=== PATIENT | female | born 1935 | race Asian ===

== ENCOUNTER 2016-08-08 09:18 | Inpatient (IN) | payer MEDICARE, OTHER ==
[~2016-08-08] VITALS: Ht 152.4 cm; Wt 42.5 kg
[~2016-08-08 09:18] MED LIST: ADV250 IH; ALBU8HFA IH; AMLO-511 PO; ATOR20TA86 PO; BENZ-26 PO; CHOL2000 PO; CLOT30CR23 TP; CYCL05OE OD; FLU15OS OD; FURO40 PO; KDUR20 PO; LATA2.5D2 OD; METF500T4 PO; METO50 PO; SPIR25 PO; TIOT185 IH; TRAM50TA4 PO; WARF1 PO
[2016-08-08 09:32] LABS: GLUCOSE,POINT OF CARE 127 MG/DL (70-110)
[2016-08-08] MEDS ORDERED: ERGO500044 PO (09:38)
[2016-08-08] MEDS ORDERED: ALBU8.5H IH (09:38)
[2016-08-08 10:25] LABS: EOSINOPHILS % (AUTO) 2.1 % (1.0-6.0); HEMATOCRIT 30.8 % (36-46); HEMOGLOBIN 9.5 g/dL (12.0-16.0); LYMPHOCYTES # (AUTO) 0.8 K/uL (1.0-4.8); LYMPHOCYTES % (AUTO) 15.3 % (22.0-44.0); MEAN CORPUSCULAR HEMOGLOBIN 21.7 pg (26.0-34.0); MEAN CORPUSCULAR HGB CONC 30.8 G/dL (31.0-37.0); MEAN CORPUSCULAR VOLUME 71 fL (80-100); MONOCYTES # (AUTO) 0.7 K/uL (0.1-1.0); MONOCYTES % (AUTO) 12.8 % (2.0-9.0); NEUTROPHILS # (AUTO) 3.6 K/uL (1.8-7.7); NEUTROPHILS % (AUTO) 69.8 % (40.0-70.0); PLATELET COUNT (AUTO) 289 K/uL (150-450); RED BLOOD CELL COUNT(AUTO) 4.36 MIL/uL (4.00-5.20); WHITE BLOOD COUNT (AUTO) 5.2 K/uL (4.5-11.0)
[2016-08-08 10:35] LABS: INR 1.6 (0.9-1.1); PROTHROMBIN TIME 17.4 SEC (9.4-11.6)
[2016-08-08 10:38] LABS: ANION GAP 11 mmol/L (8-16); CALCIUM, TOTAL 9.3 mg/dL (8.8-10.5); CARBON DIOXIDE 27 mmol/L (22-29); CHLORIDE 100 mmol/L (98-107); CREATININE 1.21 mg/dL (0.60-1.30); GLOMERULAR FILTR. RATE CALC 43 mL/min (>60); SODIUM SERUM 138 mmol/L (136-145); UREA NITROGEN, BLOOD 28 mg/dL (7-18)
[2016-08-08 10:40] LABS: ALANINE AMINOTRANSFERASE 19 U/L (12-78); ALBUMIN 3.5 g/dL (3.4-5.0); ASPARTATE AMINOTRANSFERASE 33 U/L (15-37); BILIRUBIN,TOTAL 1.4 mg/dL (0.1-1.0); CREATINE KINASE, TOTAL 54 U/L (26-192); TOTAL PROTEIN, SERUM 7.9 g/dL (6.4-8.2)
[2016-08-08 10:47] LABS: B-TYPE NATRIURETIC PEPTIDE 1170 pg/mL (0-100)
[2016-08-08 10:50] LABS: RBC MORPHOLOGY COMMENT ABNORMAL RBC MORPH
[2016-08-08] MEDS ORDERED: SODIUM CHLORIDE 0.9% 100 ML ONE (15:03)
[2016-08-08] MEDS ORDERED: IOVERSOL 350 MG/ML 100 ML VIAL ONE (15:03)
[2016-08-08 17:55] VITALS: BP 117/66
[2016-08-08] MEDS ORDERED: LEVOFLOXACIN 500 MG TABLET PO SCH (20:00)
[2016-08-08 20:13] VITALS: BP 112/71
[2016-08-08 20:47] LABS: ABG A-A DIFF O2 40.3 mmHg (10-20.0); ABG BASE EXCESS -1.7 mmol/L (-2.0-3.0); ABG HCO3 23.5 mmol/L (22.0-26.0); ABG OXYHEMOGLOBIN 93.9 % (94.0-100.0); ABG PCO2 33 mmHg (35-45); ABG PH 7.448 (7.35-7.450)
[2016-08-08] MEDS ORDERED: ALBUTEROL SULFATE HFA 90 MCG/PUFF 8 GM INHALER IH PRN (21:30)
[2016-08-08] MEDS ORDERED: TraMADol HCL 50 MG TABLET PO PRN (21:30)
[2016-08-08] MEDS ORDERED: LORazepam 0.5 MG TABLET PO ONE (21:45)
[2016-08-08 22:28] VITALS: BP 146/83
[2016-08-08] MEDS: METOPROLOL TARTRATE 50 MG TABLET PO SCH (22:52)
[2016-08-09 00:03] VITALS: BP 120/73
[2016-08-09] MEDS ORDERED: SODIUM CHLORIDE 0.9% 250 ML IV ONE (00:04)
[2016-08-09] MEDS: FLUOROMETHOLONE 0.1% 5 ML OPHTHALMIC SUSPENSION OD SCH ×2 (00:16→20:59)
[2016-08-09] MEDS: LEVOFLOXACIN 500 MG/D5% WATER 100 ML IV SCH ×2 (00:19→23:50)
[2016-08-09] MEDS: CycloSPORINE 0.05% 0.4 ML OPHTHALMIC EMULSION OD SCH ×2 (00:20→23:49)
[2016-08-09 04:11] VITALS: BP 115/72
[2016-08-09 06:01] LABS: BASOPHILS % (AUTO) 0.6 % (0.0-2.0); EOSINOPHILS % (AUTO) 2.1 % (1.0-6.0); HEMOGLOBIN 9.1 g/dL (12.0-16.0); LYMPHOCYTES # (AUTO) 0.4 K/uL (1.0-4.8); LYMPHOCYTES % (AUTO) 7.4 % (22.0-44.0); MEAN CORPUSCULAR HEMOGLOBIN 21.6 pg (26.0-34.0); MEAN CORPUSCULAR HGB CONC 30.4 G/dL (31.0-37.0); MEAN CORPUSCULAR VOLUME 71 fL (80-100); MONOCYTES # (AUTO) 0.9 K/uL (0.1-1.0); MONOCYTES % (AUTO) 15.4 % (2.0-9.0); NEUTROPHILS # (AUTO) 4.3 K/uL (1.8-7.7); NEUTROPHILS % (AUTO) 74.5 % (40.0-70.0); PLATELET COUNT (AUTO) 279 K/uL (150-450); RED BLOOD CELL COUNT(AUTO) 4.23 MIL/uL (4.00-5.20); RED CELL DISTRIBUTION WIDTH 20.3 % (11.5-14.5); WHITE BLOOD COUNT (AUTO) 5.7 K/uL (4.5-11.0)
[2016-08-09 06:25] LABS: ALBUMIN 3.2 g/dL (3.4-5.0); BILIRUBIN,TOTAL 1.3 mg/dL (0.1-1.0); CALCIUM, TOTAL 8.9 mg/dL (8.8-10.5); CREATININE 0.97 mg/dL (0.60-1.30); MAGNESIUM 2.6 mg/dL (1.80-2.40); POTASSIUM 4.3 mmol/L (3.5-5.1); TOTAL PROTEIN, SERUM 7.6 g/dL (6.4-8.2)
[2016-08-09 06:42] LABS: RBC MORPHOLOGY COMMENT ABNORMAL RBC MORPH
[2016-08-09 07:39] VITALS: BP 114/70
[2016-08-09] MEDS ORDERED: LEVALBUTEROL HCL 0.63 MG/3 ML NEB SOLUTION NEB PRN (08:15)
[2016-08-09] MEDS ORDERED: TIOTROPIUM BROMIDE 18 MCG/INH HANDIHALER [5] IH SCH (09:00)
[2016-08-09] MEDS ORDERED: ACETAMINOPHEN 325 MG TABLET PO PRN (09:00)
[2016-08-09] MEDS ORDERED: [UNRECOGNIZED DRUG - OTHER] PO SCH (09:00)
[2016-08-09] MEDS ORDERED: SPIRONOLACTONE 50 MG TABLET PO SCH (09:00)
[2016-08-09] MEDS ORDERED: HYDROCODONE/ACETAMINOPHEN 5-325 MG TABLET PO PRN (09:00)
[2016-08-09] MEDS ORDERED: WARFARIN SODIUM 3 MG TABLET PO SCH (09:00)
[2016-08-09] MEDS ORDERED: FLUTICASONE/VILANTEROL 200-25 MCG/INH INHALER [14] IH SCH (09:00)
[2016-08-09] MEDS ORDERED: SPIRONOLACTONE 25 MG TABLET PO SCH (09:00)
[2016-08-09] MEDS ORDERED: 0.9% SODIUM CHLORIDE 10 ML SYRINGE IVP PRN ×2 (09:00)
[2016-08-09] MEDS ORDERED: ONDANSETRON HCL 4 MG/2 ML VIAL IVP PRN (09:00)
[2016-08-09] MEDS ORDERED: ERGOCALCIFEROL (VIT D2) 50,000 UNITS CAPSULE PO SCH (09:00)
[2016-08-09] MEDS ORDERED: POTASSIUM CHLORIDE 20 MEQ ER TABLET PO SCH (09:00)
[2016-08-09] MEDS ORDERED: TraMADol HCL 50 MG TABLET PO PRN (09:00)
[2016-08-09] MEDS ORDERED: IPRATROPIUM BROMIDE 0.5 MG/2.5 ML NEB SOLUTION NEB PRN (09:00)
[2016-08-09] MEDS ORDERED: MORPHINE SULFATE 2 MG/ML SYRINGE IVP PRN (09:00)
[2016-08-09] MEDS ORDERED: AmLODIPine BESYLATE 5 MG TABLET PO SCH (09:00)
[2016-08-09] MEDS ORDERED: BENZONATATE 100 MG CAPSULE PO PRN (09:00)
[2016-08-09] MEDS ORDERED: METOPROLOL TARTRATE 50 MG TABLET PO SCH (09:00)
[2016-08-09] MEDS ORDERED: ZOLPIDEM TARTRATE 5 MG TABLET PO PRN (09:00)
[2016-08-09] MEDS ORDERED: FUROSEMIDE 40 MG TABLET PO SCH ×2 (09:00)
[2016-08-09] MEDS: HEPARIN SODIUM,PORCINE 5,000 UNITS/ML VIAL SQ SCH ×2 (09:30→21:00)
[2016-08-09] MEDS: MetFORMIN HCL 500 MG TABLET PO SCH ×2 (09:30→17:59)
[2016-08-09] MEDS: METOPROLOL TARTRATE 50 MG TABLET PO SCH ×2 (09:30→20:58)
[2016-08-09] MEDS: AmLODIPine BESYLATE 5 MG TABLET PO SCH (09:31)
[2016-08-09] MEDS: PANTOPRAZOLE SODIUM 40 MG DR TABLET PO SCH (09:31)
[2016-08-09] MEDS: POTASSIUM CHLORIDE 20 MEQ ER TABLET PO SCH (09:31)
[2016-08-09] MEDS: DOCUSATE SODIUM 250 MG CAPSULE PO SCH ×3 (09:31→20:59)
[2016-08-09] MEDS: SPIRONOLACTONE 25 MG TABLET PO SCH (09:32)
[2016-08-09] MEDS: FLUTICASONE/VILANTEROL 200-25 MCG/INH INHALER [14] IH SCH (09:33)
[2016-08-09] MEDS: CLOTRIMAZOLE 1% 15 GM CREAM TP SCH ×2 (09:33→21:00)
[2016-08-09] MEDS: TIOTROPIUM BROMIDE 18 MCG/INH HANDIHALER [5] IH SCH (09:34)
[2016-08-09 11:23] VITALS: BP 114/68
[2016-08-09 11:48] LABS: GLUCOSE,POINT OF CARE 104 MG/DL (70-110)
[2016-08-09] MEDS: LEVALBUTEROL HCL 0.63 MG/3 ML NEB SOLUTION NEB SCH ×4 (12:39→23:16)
[2016-08-09] MEDS: IPRATROPIUM BROMIDE 0.5 MG/2.5 ML NEB SOLUTION NEB SCH ×4 (12:39→23:16)
[2016-08-09 15:00] VITALS: BP 104/68
[2016-08-09] MEDS: WARFARIN SODIUM 3 MG TABLET PO SCH (16:20)
[2016-08-09] MEDS: FUROSEMIDE 20 MG/2 ML VIAL IVP SCH ×2 (16:21→21:00)
[2016-08-09] MEDS: CHOLECALCIFEROL (VIT D3) 2,000 UNITS TABLET PO SCH (16:21)
[2016-08-09 20:03] VITALS: BP 109/64
[2016-08-09] MEDS: ATORVASTATIN CALCIUM 20 MG TABLET PO SCH (20:59)
[2016-08-09] MEDS: LATANOPROST 0.005% 2.5 ML OPHTHALMIC SOLUTION OD SCH (20:59)
[2016-08-09] MEDS ORDERED: FLUOROMETHOLONE 0.1% 5 ML OPHTHALMIC SUSPENSION OD SCH (21:00)
[2016-08-09] MEDS ORDERED: CycloSPORINE 0.05% 0.4 ML OPHTHALMIC EMULSION OD SCH (21:00)
[2016-08-09] MEDS ORDERED: LATANOPROST 0.005% 2.5 ML OPHTHALMIC SOLUTION OD SCH (21:00)
[2016-08-09] MEDS ORDERED: ATORVASTATIN CALCIUM 20 MG TABLET PO SCH ×2 (21:00)
[2016-08-09] MEDS: BENZONATATE 100 MG CAPSULE PO PRN (21:19)
[2016-08-10] VITALS (7 sets, daily range): BP systolic 93–113; BP diastolic 51–71
[2016-08-10] MEDS: IPRATROPIUM BROMIDE 0.5 MG/2.5 ML NEB SOLUTION NEB SCH ×6 (02:53→23:11)
[2016-08-10] MEDS: LEVALBUTEROL HCL 0.63 MG/3 ML NEB SOLUTION NEB SCH ×6 (02:53→23:11)
[2016-08-10 06:38] LABS: EOSINOPHILS % (AUTO) 4.1 % (1.0-6.0); HEMATOCRIT 30.8 % (36-46); HEMOGLOBIN 9.3 g/dL (12.0-16.0); LYMPHOCYTES % (AUTO) 15.4 % (22.0-44.0); MEAN CORPUSCULAR HEMOGLOBIN 21.7 pg (26.0-34.0); MEAN CORPUSCULAR HGB CONC 30.2 G/dL (31.0-37.0); MEAN CORPUSCULAR VOLUME 72 fL (80-100); MONOCYTES # (AUTO) 0.9 K/uL (0.1-1.0); MONOCYTES % (AUTO) 14.5 % (2.0-9.0); NEUTROPHILS # (AUTO) 4.1 K/uL (1.8-7.7); PLATELET COUNT (AUTO) 259 K/uL (150-450); RED BLOOD CELL COUNT(AUTO) 4.29 MIL/uL (4.00-5.20); RED CELL DISTRIBUTION WIDTH 20.2 % (11.5-14.5); WHITE BLOOD COUNT (AUTO) 6.2 K/uL (4.5-11.0)
[2016-08-10] MEDS: PANTOPRAZOLE SODIUM 40 MG DR TABLET PO SCH (06:56)
[2016-08-10 07:10] LABS: ALBUMIN 3.4 g/dL (3.4-5.0); BILIRUBIN,TOTAL 1.4 mg/dL (0.1-1.0); CALCIUM, TOTAL 9.2 mg/dL (8.8-10.5); CREATININE 1.16 mg/dL (0.60-1.30); MAGNESIUM 2.4 mg/dL (1.80-2.40); POTASSIUM 4.1 mmol/L (3.5-5.1); TOTAL PROTEIN, SERUM 7.8 g/dL (6.4-8.2)
[2016-08-10 07:38] LABS: RBC MORPHOLOGY COMMENT ABNORMAL RBC MORPH
[2016-08-10] MEDS: HEPARIN SODIUM,PORCINE 5,000 UNITS/ML VIAL SQ SCH ×2 (08:09→20:28)
[2016-08-10] MEDS: POTASSIUM CHLORIDE 20 MEQ ER TABLET PO SCH (08:10)
[2016-08-10] MEDS: DOCUSATE SODIUM 250 MG CAPSULE PO SCH ×3 (08:10→20:26)
[2016-08-10] MEDS: FUROSEMIDE 20 MG/2 ML VIAL IVP SCH ×2 (08:10→16:26)
[2016-08-10] MEDS: AmLODIPine BESYLATE 5 MG TABLET PO SCH (08:10)
[2016-08-10] MEDS: SPIRONOLACTONE 25 MG TABLET PO SCH (08:11)
[2016-08-10] MEDS: MetFORMIN HCL 500 MG TABLET PO SCH ×2 (08:11→18:00)
[2016-08-10] MEDS: METOPROLOL TARTRATE 50 MG TABLET PO SCH ×2 (08:11→20:26)
[2016-08-10] MEDS: TIOTROPIUM BROMIDE 18 MCG/INH HANDIHALER [5] IH SCH (08:12)
[2016-08-10] MEDS: FLUTICASONE/VILANTEROL 200-25 MCG/INH INHALER [14] IH SCH (08:12)
[2016-08-10] MEDS: CHOLECALCIFEROL (VIT D3) 2,000 UNITS TABLET PO SCH (08:13)
[2016-08-10] MEDS: CLOTRIMAZOLE 1% 15 GM CREAM TP SCH ×2 (08:14→20:28)
[2016-08-10 09:08] LABS: BILIRUBIN,DIRECT 0.6 mg/dL (0.00-0.20); CHOL/HDL RATIO 3.5 (3.9-5.7); THYROID STIMULATING HORMONE 5.73 uIU/mL (0.36-3.74)
[2016-08-10 09:47] LABS: HEMOGLOBIN A1C 5.9 % (4.5-6.2)
[2016-08-10 10:39] LABS: INR 1.8 (0.9-1.1); PROTHROMBIN TIME 19.1 SEC (9.4-11.6)
[2016-08-10] MEDS ORDERED: FUROSEMIDE 20 MG/2 ML VIAL IVP SCH (16:00)
[2016-08-10] MEDS: MAGNESIUM HYDROXIDE SUSPENSION 30 ML UDCUP PO PRN (16:27)
[2016-08-10] MEDS: ATORVASTATIN CALCIUM 20 MG TABLET PO SCH (20:26)
[2016-08-10] MEDS: CycloSPORINE 0.05% 0.4 ML OPHTHALMIC EMULSION OD SCH (20:27)
[2016-08-10] MEDS: FLUOROMETHOLONE 0.1% 5 ML OPHTHALMIC SUSPENSION OD SCH (20:27)
[2016-08-10] MEDS: LATANOPROST 0.005% 2.5 ML OPHTHALMIC SOLUTION OD SCH (20:27)
[2016-08-10] MEDS ORDERED: SODIUM CHLORIDE 0.9% 250 ML IV ONE (22:37)
[2016-08-10] MEDS: LEVOFLOXACIN 500 MG/D5% WATER 100 ML IV SCH (22:40)
[2016-08-11] MEDS: LEVALBUTEROL HCL 0.63 MG/3 ML NEB SOLUTION NEB SCH ×6 (03:13→22:30)
[2016-08-11] MEDS: IPRATROPIUM BROMIDE 0.5 MG/2.5 ML NEB SOLUTION NEB SCH ×6 (03:13→22:30)
[2016-08-11 04:22] VITALS: BP 93/71
[2016-08-11] MEDS: PANTOPRAZOLE SODIUM 40 MG DR TABLET PO SCH (06:18)
[2016-08-11 07:32] VITALS: BP 102/73
[2016-08-11] MEDS: SPIRONOLACTONE 25 MG TABLET PO SCH (08:20)
[2016-08-11] MEDS: FUROSEMIDE 20 MG/2 ML VIAL IVP SCH ×2 (08:20→16:56)
[2016-08-11] MEDS: MetFORMIN HCL 500 MG TABLET PO SCH ×2 (08:20→18:09)
[2016-08-11] MEDS: AmLODIPine BESYLATE 5 MG TABLET PO SCH (08:21)
[2016-08-11] MEDS: TIOTROPIUM BROMIDE 18 MCG/INH HANDIHALER [5] IH SCH (08:21)
[2016-08-11] MEDS: POTASSIUM CHLORIDE 20 MEQ ER TABLET PO SCH (08:21)
[2016-08-11] MEDS: DOCUSATE SODIUM 250 MG CAPSULE PO SCH ×3 (08:21→22:04)
[2016-08-11] MEDS: METOPROLOL TARTRATE 50 MG TABLET PO SCH ×2 (08:22→22:04)
[2016-08-11] MEDS: FLUTICASONE/VILANTEROL 200-25 MCG/INH INHALER [14] IH SCH (08:22)
[2016-08-11] MEDS: CLOTRIMAZOLE 1% 15 GM CREAM TP SCH ×2 (08:22→22:04)
[2016-08-11] MEDS: MAGNESIUM HYDROXIDE SUSPENSION 30 ML UDCUP PO PRN (08:23)
[2016-08-11] MEDS: CHOLECALCIFEROL (VIT D3) 2,000 UNITS TABLET PO SCH (08:23)
[2016-08-11] MEDS: HEPARIN SODIUM,PORCINE 5,000 UNITS/ML VIAL SQ SCH ×2 (08:23→23:14)
[2016-08-11 08:27] LABS: ALBUMIN 3.2 g/dL (3.4-5.0); BILIRUBIN,TOTAL 1.2 mg/dL (0.1-1.0); CALCIUM, TOTAL 8.5 mg/dL (8.8-10.5); CREATININE 1.27 mg/dL (0.60-1.30); POTASSIUM 4.1 mmol/L (3.5-5.1); TOTAL PROTEIN, SERUM 7.4 g/dL (6.4-8.2)
[2016-08-11 11:14] VITALS: BP 101/78
[2016-08-11 16:19] VITALS: BP 112/72
[2016-08-11 19:45] VITALS: BP 111/57
[2016-08-11] MEDS: LATANOPROST 0.005% 2.5 ML OPHTHALMIC SOLUTION OD SCH (22:04)
[2016-08-11] MEDS: FLUOROMETHOLONE 0.1% 5 ML OPHTHALMIC SUSPENSION OD SCH (22:04)
[2016-08-11] MEDS: ATORVASTATIN CALCIUM 20 MG TABLET PO SCH (22:04)
[2016-08-11] MEDS: CycloSPORINE 0.05% 0.4 ML OPHTHALMIC EMULSION OD SCH (22:05)
[2016-08-11] MEDS: LEVOFLOXACIN 500 MG/D5% WATER 100 ML IV SCH (23:14)
[2016-08-12] VITALS (8 sets, daily range): BP systolic 90–126; BP diastolic 52–83
[2016-08-12] MEDS: IPRATROPIUM BROMIDE 0.5 MG/2.5 ML NEB SOLUTION NEB SCH ×6 (03:13→23:00)
[2016-08-12] MEDS: LEVALBUTEROL HCL 0.63 MG/3 ML NEB SOLUTION NEB SCH ×6 (03:13→23:00)
[2016-08-12] MEDS: PANTOPRAZOLE SODIUM 40 MG DR TABLET PO SCH (06:14)
[2016-08-12] MEDS: MAGNESIUM HYDROXIDE SUSPENSION 30 ML UDCUP PO PRN (06:16)
[2016-08-12 07:47] LABS: ALBUMIN 3.4 g/dL (3.4-5.0); BILIRUBIN,TOTAL 1.4 mg/dL (0.1-1.0); CALCIUM, TOTAL 8.9 mg/dL (8.8-10.5); CREATININE 1.12 mg/dL (0.60-1.30); POTASSIUM 4.1 mmol/L (3.5-5.1); TOTAL PROTEIN, SERUM 7.7 g/dL (6.4-8.2)
[2016-08-12] MEDS ORDERED: LACTULOSE 20 GM/30 ML SOLUTION UDCUP PO PRN (08:30)
[2016-08-12] MEDS ORDERED: SPIRONOLACTONE 25 MG TABLET PO SCH (09:00)
[2016-08-12] MEDS ORDERED: MAGNESIUM HYDROXIDE SUSPENSION 30 ML UDCUP PO PRN (09:00)
[2016-08-12] MEDS: CLOTRIMAZOLE 1% 15 GM CREAM TP SCH ×2 (09:08→21:20)
[2016-08-12] MEDS: TIOTROPIUM BROMIDE 18 MCG/INH HANDIHALER [5] IH SCH (09:08)
[2016-08-12] MEDS: DOCUSATE SODIUM 250 MG CAPSULE PO SCH ×3 (09:08→21:20)
[2016-08-12] MEDS: MetFORMIN HCL 500 MG TABLET PO SCH ×2 (09:08→17:58)
[2016-08-12] MEDS: FLUTICASONE/VILANTEROL 200-25 MCG/INH INHALER [14] IH SCH (09:08)
[2016-08-12] MEDS: POTASSIUM CHLORIDE 20 MEQ ER TABLET PO SCH (09:08)
[2016-08-12] MEDS: CHOLECALCIFEROL (VIT D3) 2,000 UNITS TABLET PO SCH (09:08)
[2016-08-12] MEDS: FUROSEMIDE 20 MG/2 ML VIAL IVP SCH ×2 (09:09→16:53)
[2016-08-12] MEDS: AmLODIPine BESYLATE 5 MG TABLET PO SCH (09:09)
[2016-08-12] MEDS: SPIRONOLACTONE 25 MG TABLET PO SCH (09:09)
[2016-08-12] MEDS: HEPARIN SODIUM,PORCINE 5,000 UNITS/ML VIAL SQ SCH ×2 (09:09→21:21)
[2016-08-12] MEDS: METOPROLOL TARTRATE 50 MG TABLET PO SCH ×2 (09:15→21:20)
[2016-08-12 17:42] LABS: GLUCOSE COMMENT 1 Received Meds; GLUCOSE,POINT OF CARE 161 MG/DL (70-110)
[2016-08-12] MEDS: WARFARIN SODIUM 3 MG TABLET PO SCH (17:59)
[2016-08-12 18:07] LABS: GLUCOSE,POINT OF CARE 107 MG/DL (70-110)
[2016-08-12] MEDS: LATANOPROST 0.005% 2.5 ML OPHTHALMIC SOLUTION OD SCH (21:20)
[2016-08-12] MEDS: ATORVASTATIN CALCIUM 20 MG TABLET PO SCH (21:20)
[2016-08-12] MEDS: CycloSPORINE 0.05% 0.4 ML OPHTHALMIC EMULSION OD SCH (21:20)
[2016-08-12] MEDS: FLUOROMETHOLONE 0.1% 5 ML OPHTHALMIC SUSPENSION OD SCH (21:21)
[2016-08-12] MEDS: LEVOFLOXACIN 500 MG/D5% WATER 100 ML IV SCH (23:40)
[2016-08-13] MEDS: IPRATROPIUM BROMIDE 0.5 MG/2.5 ML NEB SOLUTION NEB SCH ×6 (03:00→23:05)
[2016-08-13] MEDS: LEVALBUTEROL HCL 0.63 MG/3 ML NEB SOLUTION NEB SCH ×6 (03:00→23:05)
[2016-08-13 04:38] VITALS: BP 104/56
[2016-08-13 05:32] LABS: GLUCOSE,POINT OF CARE 118 MG/DL (70-110)
[2016-08-13] MEDS: PANTOPRAZOLE SODIUM 40 MG DR TABLET PO SCH (06:00)
[2016-08-13 07:09] VITALS: BP 109/63
[2016-08-13 07:24] LABS: BASOPHILS % (AUTO) 0.1 % (0.0-2.0); EOSINOPHILS % (AUTO) 0.2 % (1.0-6.0); HEMATOCRIT 29.2 % (36-46); HEMOGLOBIN 8.9 g/dL (12.0-16.0); LYMPHOCYTES # (AUTO) 0.4 K/uL (1.0-4.8); MEAN CORPUSCULAR HEMOGLOBIN 21.5 pg (26.0-34.0); MEAN CORPUSCULAR HGB CONC 30.6 G/dL (31.0-37.0); MEAN CORPUSCULAR VOLUME 70 fL (80-100); MONOCYTES # (AUTO) 0.6 K/uL (0.1-1.0); MONOCYTES % (AUTO) 7.1 % (2.0-9.0); PLATELET COUNT (AUTO) 244 K/uL (150-450); RED BLOOD CELL COUNT(AUTO) 4.16 MIL/uL (4.00-5.20); RED CELL DISTRIBUTION WIDTH 19.4 % (11.5-14.5)
[2016-08-13 07:33] LABS: NEUTROPHILS % (AUTO) 88.6 % (40.0-70.0)
[2016-08-13 07:51] LABS: ALBUMIN 3.2 g/dL (3.4-5.0); BILIRUBIN,TOTAL 1.8 mg/dL (0.1-1.0); CALCIUM, TOTAL 8.6 mg/dL (8.8-10.5); CREATININE 1.12 mg/dL (0.60-1.30); MAGNESIUM 2.4 mg/dL (1.80-2.40); POTASSIUM 4.3 mmol/L (3.5-5.1); TOTAL PROTEIN, SERUM 7.4 g/dL (6.4-8.2)
[2016-08-13] MEDS: MetFORMIN HCL 500 MG TABLET PO SCH ×2 (08:47→18:19)
[2016-08-13] MEDS: METOPROLOL TARTRATE 50 MG TABLET PO SCH ×2 (08:48→20:02)
[2016-08-13] MEDS: BENZONATATE 100 MG CAPSULE PO PRN (08:48)
[2016-08-13] MEDS: CHOLECALCIFEROL (VIT D3) 2,000 UNITS TABLET PO SCH (08:49)
[2016-08-13] MEDS: DOCUSATE SODIUM 250 MG CAPSULE PO SCH ×3 (08:50→20:02)
[2016-08-13] MEDS: FLUTICASONE/VILANTEROL 200-25 MCG/INH INHALER [14] IH SCH (08:51)
[2016-08-13] MEDS: TIOTROPIUM BROMIDE 18 MCG/INH HANDIHALER [5] IH SCH (08:51)
[2016-08-13] MEDS: HEPARIN SODIUM,PORCINE 5,000 UNITS/ML VIAL SQ SCH ×2 (08:59→20:02)
[2016-08-13] MEDS: AmLODIPine BESYLATE 5 MG TABLET PO SCH (09:00)
[2016-08-13 09:12] LABS: RBC MORPHOLOGY COMMENT ABNORMAL RBC MORPH
[2016-08-13 09:29] LABS: INR 1.5 (0.9-1.1); PROTHROMBIN TIME 15.6 SEC (9.4-11.6)
[2016-08-13] MEDS: FUROSEMIDE 20 MG TABLET PO SCH ×2 (10:00→16:54)
[2016-08-13] MEDS: SPIRONOLACTONE 25 MG TABLET PO SCH (10:01)
[2016-08-13] MEDS: POTASSIUM CHLORIDE 20 MEQ ER TABLET PO SCH (10:01)
[2016-08-13] MEDS: CLOTRIMAZOLE 1% 15 GM CREAM TP SCH ×2 (10:09→20:07)
[2016-08-13 11:10] VITALS: BP 104/53
[2016-08-13 14:33] LABS: GLUCOSE,POINT OF CARE 90 MG/DL (70-110)
[2016-08-13 15:02] LABS: GLUCOSE,POINT OF CARE 90 MG/DL (70-110)
[2016-08-13 15:23] LABS: GLUCOSE COMMENT 1 Received Meds; GLUCOSE,POINT OF CARE 160 MG/DL (70-110)
[2016-08-13 15:23] LABS: GLUCOSE,POINT OF CARE 92 MG/DL (70-110)
[2016-08-13 15:23] LABS: GLUCOSE,POINT OF CARE 105 MG/DL (70-110)
[2016-08-13 15:36] LABS: GLUCOSE,POINT OF CARE 85 MG/DL (70-110)
[2016-08-13 15:36] LABS: GLUCOSE,POINT OF CARE 120 MG/DL (70-110)
[2016-08-13 15:50] VITALS: BP 103/60
[2016-08-13 19:44] VITALS: BP 91/63
[2016-08-13] MEDS: CycloSPORINE 0.05% 0.4 ML OPHTHALMIC EMULSION OD SCH (20:01)
[2016-08-13] MEDS: LATANOPROST 0.005% 2.5 ML OPHTHALMIC SOLUTION OD SCH (20:01)
[2016-08-13] MEDS: FLUOROMETHOLONE 0.1% 5 ML OPHTHALMIC SUSPENSION OD SCH (20:01)
[2016-08-13] MEDS: ATORVASTATIN CALCIUM 20 MG TABLET PO SCH (20:02)
[2016-08-13] MEDS: LEVOFLOXACIN 500 MG/D5% WATER 100 ML IV SCH (23:12)
[2016-08-13 23:37] VITALS: BP 97/66
[2016-08-14] MEDS: IPRATROPIUM BROMIDE 0.5 MG/2.5 ML NEB SOLUTION NEB SCH ×3 (02:58→11:51)
[2016-08-14] MEDS: LEVALBUTEROL HCL 0.63 MG/3 ML NEB SOLUTION NEB SCH ×3 (02:58→11:51)
[2016-08-14 04:37] VITALS: BP 92/52
[2016-08-14 05:52] LABS: BASOPHILS % (AUTO) 0.3 % (0.0-2.0); HEMATOCRIT 28.5 % (36-46); HEMOGLOBIN 8.8 g/dL (12.0-16.0); LYMPHOCYTES # (AUTO) 0.5 K/uL (1.0-4.8); LYMPHOCYTES % (AUTO) 7.1 % (22.0-44.0); MEAN CORPUSCULAR HEMOGLOBIN 21.5 pg (26.0-34.0); MEAN CORPUSCULAR HGB CONC 30.9 G/dL (31.0-37.0); MEAN CORPUSCULAR VOLUME 70 fL (80-100); MONOCYTES # (AUTO) 0.9 K/uL (0.1-1.0); NEUTROPHILS % (AUTO) 76.6 % (40.0-70.0); PLATELET COUNT (AUTO) 208 K/uL (150-450); RED BLOOD CELL COUNT(AUTO) 4.09 MIL/uL (4.00-5.20); RED CELL DISTRIBUTION WIDTH 19.9 % (11.5-14.5); WHITE BLOOD COUNT (AUTO) 6.5 K/uL (4.5-11.0)
[2016-08-14 06:11] LABS: ALBUMIN 3.1 g/dL (3.4-5.0); BILIRUBIN,TOTAL 1.2 mg/dL (0.1-1.0); CALCIUM, TOTAL 8.6 mg/dL (8.8-10.5); CREATININE 1.2 mg/dL (0.60-1.30); MAGNESIUM 2.3 mg/dL (1.80-2.40); POTASSIUM 4.1 mmol/L (3.5-5.1); TOTAL PROTEIN, SERUM 7.1 g/dL (6.4-8.2)
[2016-08-14] MEDS: PANTOPRAZOLE SODIUM 40 MG DR TABLET PO SCH (06:16)
[2016-08-14 06:48] LABS: RBC MORPHOLOGY COMMENT ABNORMAL RBC MORPH
[2016-08-14 07:10] VITALS: BP 96/58
[2016-08-14] MEDS: POTASSIUM CHLORIDE 20 MEQ ER TABLET PO SCH (08:12)
[2016-08-14] MEDS: DOCUSATE SODIUM 250 MG CAPSULE PO SCH (08:12)
[2016-08-14] MEDS: MetFORMIN HCL 500 MG TABLET PO SCH (08:12)
[2016-08-14] MEDS: FUROSEMIDE 20 MG TABLET PO SCH (08:13)
[2016-08-14] MEDS: SPIRONOLACTONE 25 MG TABLET PO SCH (08:13)
[2016-08-14] MEDS: FLUTICASONE/VILANTEROL 200-25 MCG/INH INHALER [14] IH SCH (08:14)
[2016-08-14] MEDS: HEPARIN SODIUM,PORCINE 5,000 UNITS/ML VIAL SQ SCH (08:14)
[2016-08-14] MEDS: TIOTROPIUM BROMIDE 18 MCG/INH HANDIHALER [5] IH SCH (08:14)
[2016-08-14] MEDS: CHOLECALCIFEROL (VIT D3) 2,000 UNITS TABLET PO SCH (08:14)
[2016-08-14] MEDS: AmLODIPine BESYLATE 5 MG TABLET PO SCH (08:14)
[2016-08-14] MEDS: CLOTRIMAZOLE 1% 15 GM CREAM TP SCH (08:15)
[2016-08-14] MEDS: METOPROLOL TARTRATE 50 MG TABLET PO SCH (08:15)
[2016-08-14 11:24] VITALS: BP 97/67
[2016-08-14] MEDS ORDERED: SPIR25 PO (18:13)
[2016-08-14] MEDS ORDERED: DOCU240C25 PO (18:13)
[2016-08-15] MEDS ORDERED: ERGOCALCIFEROL (VIT D2) 50,000 UNITS CAPSULE PO SCH (09:00)
[2016-08-20 14:06] LABS: GLUCOSE,POINT OF CARE 110 MG/DL (70-110)
[2016-08-20 14:06] LABS: GLUCOSE,POINT OF CARE 117 MG/DL (70-110)
[2016-08-26 06:53] LABS: GLUCOSE,POINT OF CARE 120 MG/DL (70-110)
[2016-08-26 06:53] LABS: GLUCOSE,POINT OF CARE 96 MG/DL (70-110)
[2016-08-26 06:53] LABS: GLUCOSE,POINT OF CARE 114 MG/DL (70-110)
[2016-08-26 06:53] LABS: GLUCOSE,POINT OF CARE 102 MG/DL (70-110)
== END 2016-08-14 16:35 | disposition home or self-care (01) | DRG 292 ==
LOC: EMS 09:19 → AHU 16:48 → 5N 21:00 → 5S 08-09 10:29
PROVIDERS: ADMIT Internal Medicine; ATTEND Internal Medicine
DX: I50.31 Acute diastolic (congestive) heart failure (principal); Z68.1 Body mass index [BMI] 19.9 or less, adult; I11.0 Hypertensive heart disease with heart failure; I27.2 Other secondary pulmonary hypertension; E78.5 Hyperlipidemia, unspecified; H40.9 Unspecified glaucoma; I48.2 Chronic atrial fibrillation; J45.909 Unspecified asthma, uncomplicated; K21.9 Gastro-esophageal reflux disease without esophagitis; I70.0 Atherosclerosis of aorta; D64.9 Anemia, unspecified; I09.9 Rheumatic heart disease, unspecified; I49.5 Sick sinus syndrome; K76.1 Chronic passive congestion of liver; K74.69 Other cirrhosis of liver; I37.1 Nonrheumatic pulmonary valve insufficiency; E78.00 Pure hypercholesterolemia, unspecified; I25.10 Atherosclerotic heart disease of native coronary artery without angina pectoris; I08.1 Rheumatic disorders of both mitral and tricuspid valves; E11.9 Type 2 diabetes mellitus without complications; Z95.2 Presence of prosthetic heart valve; Z95.0 Presence of cardiac pacemaker; Z95.1 Presence of aortocoronary bypass graft; Z79.899 Other long term (current) drug therapy; Z79.84 Long term (current) use of oral hypoglycemic drugs; Z79.51 Long term (current) use of inhaled steroids; Z79.01 Long term (current) use of anticoagulants; Z98.890 Other specified postprocedural states; Z87.01 Personal history of pneumonia (recurrent); Z82.49 Family history of ischemic heart disease and other diseases of the circulatory system; R63.0 Anorexia
CPT/HCPCS: 71250; 71275; 82248; 82805; 82962; 83036; 83735; 84443; 93005; 93306; 94640; 99291; J1644; J1940; J1956; J3535; J7050

== ENCOUNTER 2016-08-27 09:27 | Emergency (ER) | payer MEDICARE, OTHER ==
[~2016-08-27] VITALS: Ht 152.4 cm; Wt 41.5 kg
[~2016-08-27 09:27] MED LIST changes: +ALBU8.5H IH; +DOCU240C25 PO; +ERGO500044 PO
[2016-08-27 09:37] LABS: GLUCOSE,POINT OF CARE 161 MG/DL (70-110)
[2016-08-27 10:27] LABS: HEMATOCRIT 30.9 % (36-46); HEMOGLOBIN 9.6 g/dL (12.0-16.0); LYMPHOCYTES # (AUTO) 0.7 K/uL (1.0-4.8); LYMPHOCYTES % (AUTO) 10.1 % (22.0-44.0); MEAN CORPUSCULAR HEMOGLOBIN 21.5 pg (26.0-34.0); MEAN CORPUSCULAR HGB CONC 30.9 G/dL (31.0-37.0); MEAN CORPUSCULAR VOLUME 70 fL (80-100); MONOCYTES # (AUTO) 0.6 K/uL (0.1-1.0); MONOCYTES % (AUTO) 9.3 % (2.0-9.0); NEUTROPHILS # (AUTO) 5.1 K/uL (1.8-7.7); NEUTROPHILS % (AUTO) 78.6 % (40.0-70.0); PLATELET COUNT (AUTO) 253 K/uL (150-450); RED BLOOD CELL COUNT(AUTO) 4.43 MIL/uL (4.00-5.20); RED CELL DISTRIBUTION WIDTH 19.9 % (11.5-14.5); WHITE BLOOD COUNT (AUTO) 6.5 K/uL (4.5-11.0)
[2016-08-27 10:34] LABS: ANION GAP 8 mmol/L (8-16); CALCIUM, TOTAL 10.3 mg/dL (8.8-10.5); CARBON DIOXIDE 32 mmol/L (22-29); CHLORIDE 99 mmol/L (98-107); CREATININE 1.16 mg/dL (0.60-1.30); GLOMERULAR FILTR. RATE CALC 45 mL/min (>60); POTASSIUM 3.7 mmol/L (3.5-5.1); SODIUM SERUM 139 mmol/L (136-145); UREA NITROGEN, BLOOD 23 mg/dL (7-18)
[2016-08-27 10:37] LABS: INR 1.7 (0.9-1.1); PROTHROMBIN TIME 17.9 SEC (9.4-11.6)
[2016-08-27 10:41] LABS: ALANINE AMINOTRANSFERASE 18 U/L (12-78); ALBUMIN 3.7 g/dL (3.4-5.0); ASPARTATE AMINOTRANSFERASE 30 U/L (15-37); BILIRUBIN,TOTAL 1.2 mg/dL (0.1-1.0); CREATINE KINASE, TOTAL 49 U/L (26-192); TOTAL PROTEIN, SERUM 8.3 g/dL (6.4-8.2)
[2016-08-27 10:44] LABS: RBC MORPHOLOGY COMMENT ABNORMAL RBC MORPH
[2016-08-27 10:57] LABS: B-TYPE NATRIURETIC PEPTIDE 979 pg/mL (0-100)
[2016-08-27 12:02] LABS: APPEARANCE,URINE CLEAR (CLEAR); GLUCOSE, URINE (UA) NEGATIVE (NEGATIVE); KETONES,URINE NEGATIVE (NEGATIVE); LEUKOCYTE ESTERASE ,URINE NEGATIVE (NEGATIVE); OCCULT BLOOD,URINE SMALL (NEGATIVE); PH,URINE 5.5 (5.0-8.0); PROTEIN,URINE NEGATIVE (NEGATIVE)
[2016-08-27 12:03] LABS: ADD UA MICROSCOPIC YES
[2016-08-27 12:06] LABS: SQUAMOUS EPITHELIAL CELL,UR Few /LPF (None Seen); WBC,URINE 0-2 /HPF (0-5)
[2016-08-27] MEDS ORDERED: FUROSEMIDE 40 MG/4 ML VIAL IVP ONE (13:45)
[2016-08-27 13:59] VITALS: BP 119/75
== END 2016-08-27 14:36 | disposition home or self-care (01) ==
LOC: EMS 09:29
DX: I11.0 Hypertensive heart disease with heart failure (principal); I50.9 Heart failure, unspecified; F41.9 Anxiety disorder, unspecified; I48.91 Unspecified atrial fibrillation; J45.909 Unspecified asthma, uncomplicated; J44.9 Chronic obstructive pulmonary disease, unspecified; K21.9 Gastro-esophageal reflux disease without esophagitis; E11.9 Type 2 diabetes mellitus without complications; E78.00 Pure hypercholesterolemia, unspecified; Z95.0 Presence of cardiac pacemaker; Z95.1 Presence of aortocoronary bypass graft
CPT/HCPCS: 36415; 51702; 71010; 80053; 81001; 82550; 82962; 83880; 84484; 85025; 85610; 85730; 93005; 96374; 99285; J1940

== ENCOUNTER 2016-08-28 23:54 | Inpatient (IN) | payer MEDICARE, OTHER ==
[~2016-08-28] VITALS: Ht 152.4 cm; Wt 40.5 kg
[2016-08-29] MEDS ORDERED: IPRATROPIUM BROMIDE 0.5 MG/2.5 ML NEB SOLUTION NEB ONE (01:00)
[2016-08-29] MEDS ORDERED: ALBUTEROL SULFATE 5 MG/ML 20 ML NEB SOLN [BULK] NEB ONE (01:00)
[2016-08-29 01:24] LABS: CALCIUM, TOTAL 9.8 mg/dL (8.8-10.5); CREATININE 1.2 mg/dL (0.60-1.30); POTASSIUM 4.2 mmol/L (3.5-5.1)
[2016-08-29 01:30] LABS: ALBUMIN 3.7 g/dL (3.4-5.0); HEMATOCRIT 30.2 % (36-46); HEMOGLOBIN 9.7 g/dL (12.0-16.0); INR 1.8 (0.9-1.1); MEAN CORPUSCULAR HGB CONC 31.9 G/dL (31.0-37.0); MEAN CORPUSCULAR VOLUME 69 fL (80-100); PLATELET COUNT (AUTO) 250 K/uL (150-450); PROTHROMBIN TIME 19.4 SEC (9.4-11.6); RED BLOOD CELL COUNT(AUTO) 4.38 MIL/uL (4.00-5.20); RED CELL DISTRIBUTION WIDTH 19.3 % (11.5-14.5); TOTAL PROTEIN, SERUM 8.2 g/dL (6.4-8.2); WHITE BLOOD COUNT (AUTO) 6.7 K/uL (4.5-11.0)
[2016-08-29 01:58] LABS: LYMPHOCYTES % (MANUAL) 10 % (22-44); TOTAL CELLS COUNTED 100
[2016-08-29 01:59] LABS: RBC MORPHOLOGY COMMENT ABNORMAL RBC MORPH
[2016-08-29] MEDS ORDERED: FUROSEMIDE 40 MG/4 ML VIAL IVP ONE (02:00)
[2016-08-29] MEDS ORDERED: 0.9% SODIUM CHLORIDE 10 ML SYRINGE IVP PRN ×3 (03:00→08:45)
[2016-08-29] MEDS ORDERED: ACETAMINOPHEN 325 MG TABLET PO PRN ×2 (03:00→08:45)
[2016-08-29] MEDS ORDERED: MethylPREDNISolone SOD SUCC 125 MG/2 ML VIAL IVP ONE (03:00)
[2016-08-29] MEDS ORDERED: ONDANSETRON HCL 4 MG/2 ML VIAL IVP PRN ×2 (03:00→08:45)
[2016-08-29 04:56] VITALS: BP 126/72
[2016-08-29 07:13] VITALS: BP 104/72
[2016-08-29 08:07] LABS: CALCIUM, TOTAL 9.1 mg/dL (8.8-10.5); CREATININE 1.05 mg/dL (0.60-1.30); MAGNESIUM 1.9 mg/dL (1.80-2.40); POTASSIUM 3.2 mmol/L (3.5-5.1)
[2016-08-29] MEDS ORDERED: HYDROCODONE/ACETAMINOPHEN 5-325 MG TABLET PO PRN (08:45)
[2016-08-29] MEDS ORDERED: ZOLPIDEM TARTRATE 5 MG TABLET PO PRN (08:45)
[2016-08-29] MEDS ORDERED: SPIRONOLACTONE 50 MG TABLET PO ONE (09:00)
[2016-08-29] MEDS ORDERED: DOCUSATE CALCIUM 240 MG CAPSULE PO SCH (09:00)
[2016-08-29] MEDS ORDERED: CHOLECALCIFEROL (VIT D3) 1,000 UNITS TABLET PO SCH (09:00)
[2016-08-29] MEDS ORDERED: AmLODIPine BESYLATE 5 MG TABLET PO SCH (09:00)
[2016-08-29] MEDS: FUROSEMIDE 40 MG/4 ML VIAL IVP SCH ×2 (09:00→20:37)
[2016-08-29] MEDS ORDERED: ERGOCALCIFEROL (VIT D2) 50,000 UNITS CAPSULE PO SCH (09:00)
[2016-08-29] MEDS ORDERED: ALBUTEROL SULFATE HFA 90 MCG/PUFF 8 GM INHALER IH SCH (09:00)
[2016-08-29] MEDS: METOPROLOL TARTRATE 50 MG TABLET PO SCH ×2 (09:00→20:43)
[2016-08-29] MEDS: DOCUSATE SODIUM 250 MG CAPSULE PO SCH ×3 (09:29→20:39)
[2016-08-29] MEDS: PANTOPRAZOLE SODIUM 40 MG DR TABLET PO SCH (09:29)
[2016-08-29] MEDS: MetFORMIN HCL 500 MG TABLET PO SCH ×2 (09:29→18:02)
[2016-08-29] MEDS: SPIRONOLACTONE 25 MG TABLET PO SCH (09:29)
[2016-08-29] MEDS: CLOTRIMAZOLE 1% 15 GM CREAM TP SCH ×2 (09:29→20:39)
[2016-08-29] MEDS: POTASSIUM CHLORIDE 20 MEQ ER TABLET PO SCH (09:29)
[2016-08-29] MEDS: BENZONATATE 100 MG CAPSULE PO PRN ×2 (09:31→21:45)
[2016-08-29 11:03] VITALS: BP 102/51
[2016-08-29] MEDS ORDERED: MethylPREDNISolone SOD SUCC 125 MG/2 ML VIAL IVP SCH (12:00)
[2016-08-29] MEDS: LEVALBUTEROL HCL 0.63 MG/3 ML NEB SOLUTION NEB PRN (14:34)
[2016-08-29] MEDS: IPRATROPIUM BROMIDE 0.5 MG/2.5 ML NEB SOLUTION NEB PRN (14:34)
[2016-08-29 15:39] VITALS: BP 105/64
[2016-08-29] MEDS ORDERED: POTASSIUM CHL 10 MEQ/WATER 50 ML IV PRN (17:30)
[2016-08-29] MEDS ORDERED: POTASSIUM CHLORIDE 20 MEQ ER TABLET PO PRN (17:30)
[2016-08-29] MEDS ORDERED: WARFARIN SODIUM 3 MG TABLET PO SCH ×2 (19:00→19:13)
[2016-08-29 19:19] VITALS: BP 104/63
[2016-08-29] MEDS: BUDESONIDE 0.5 MG/2 ML NEB SOLUTION NEB SCH (20:52)
[2016-08-29] MEDS ORDERED: CycloSPORINE 0.05% 0.4 ML OPHTHALMIC EMULSION OD SCH (21:00)
[2016-08-29] MEDS ORDERED: ATORVASTATIN CALCIUM 20 MG TABLET PO SCH ×2 (21:00)
[2016-08-29] MEDS ORDERED: LATANOPROST 0.005% 2.5 ML OPHTHALMIC SOLUTION OD SCH (21:00)
[2016-08-29] MEDS ORDERED: FLUOROMETHOLONE 0.1% 5 ML OPHTHALMIC SUSPENSION OD SCH (21:00)
[2016-08-30 00:36] VITALS: BP 105/63
[2016-08-30 04:31] VITALS: BP 100/53
[2016-08-30] MEDS: BENZONATATE 100 MG CAPSULE PO PRN (04:35)
[2016-08-30] MEDS: PANTOPRAZOLE SODIUM 40 MG DR TABLET PO SCH (06:09)
[2016-08-30 07:15] LABS: HEMATOCRIT 29.4 % (36-46); HEMOGLOBIN 9.5 g/dL (12.0-16.0); MEAN CORPUSCULAR HEMOGLOBIN 22.4 pg (26.0-34.0); MEAN CORPUSCULAR HGB CONC 32.3 G/dL (31.0-37.0); MEAN CORPUSCULAR VOLUME 69 fL (80-100); PLATELET COUNT (AUTO) 254 K/uL (150-450); RED BLOOD CELL COUNT(AUTO) 4.23 MIL/uL (4.00-5.20); RED CELL DISTRIBUTION WIDTH 20.5 % (11.5-14.5); WHITE BLOOD COUNT (AUTO) 8.9 K/uL (4.5-11.0)
[2016-08-30 07:20] LABS: INR 1.9 (0.9-1.1)
[2016-08-30 07:24] LABS: ALBUMIN 3.5 g/dL (3.4-5.0); BILIRUBIN,TOTAL 0.9 mg/dL (0.1-1.0); CALCIUM, TOTAL 9.1 mg/dL (8.8-10.5); CHOL/HDL RATIO 3.2 (3.9-5.7); CREATININE 1.03 mg/dL (0.60-1.30); MAGNESIUM 2.2 mg/dL (1.80-2.40); THYROID STIMULATING HORMONE 2.16 uIU/mL (0.36-3.74); TOTAL PROTEIN, SERUM 7.8 g/dL (6.4-8.2)
[2016-08-30 07:36] VITALS: BP 111/68
[2016-08-30 08:20] LABS: HEMOGLOBIN A1C 6.6 % (4.5-6.2)
[2016-08-30] MEDS: BUDESONIDE 0.5 MG/2 ML NEB SOLUTION NEB SCH (08:53)
[2016-08-30] MEDS: LEVALBUTEROL HCL 0.63 MG/3 ML NEB SOLUTION NEB PRN (08:53)
[2016-08-30] MEDS: IPRATROPIUM BROMIDE 0.5 MG/2.5 ML NEB SOLUTION NEB PRN (08:53)
[2016-08-30] MEDS: METOPROLOL TARTRATE 50 MG TABLET PO SCH (09:00)
[2016-08-30] MEDS: SPIRONOLACTONE 25 MG TABLET PO SCH (09:00)
[2016-08-30] MEDS ORDERED: HYDROCODONE/CHLORPHEN POLIS 10-8 MG/5 ML ORAL.SYG PO PRN (09:00)
[2016-08-30] MEDS ORDERED: CHOLECALCIFEROL (VIT D3) 2,000 UNITS TABLET PO SCH (09:00)
[2016-08-30] MEDS: MetFORMIN HCL 500 MG TABLET PO SCH (09:37)
[2016-08-30] MEDS: CLOTRIMAZOLE 1% 15 GM CREAM TP SCH (09:37)
[2016-08-30] MEDS: DOCUSATE SODIUM 250 MG CAPSULE PO SCH ×2 (09:37→16:00)
[2016-08-30] MEDS: POTASSIUM CHLORIDE 20 MEQ ER TABLET PO SCH (09:37)
[2016-08-30] MEDS: FUROSEMIDE 40 MG/4 ML VIAL IVP SCH (09:38)
[2016-08-30] MEDS ORDERED: CefTRIAXone 1 GM/DEXTROSE 50 ML IV SCH (10:00)
[2016-08-30 10:54] VITALS: BP 111/62
[2016-08-30 11:02] LABS: BAND NEUTROPHILS % (MANUAL) 1 % (1-5); LYMPHOCYTES % (MANUAL) 9 % (22-44); TOTAL CELLS COUNTED 100
[2016-08-30 11:03] LABS: RBC MORPHOLOGY COMMENT ABNORMAL R
[2016-08-30] MEDS ORDERED: GUAIFENESIN 600 MG PO SCH (11:30)
[2016-08-30] MEDS ORDERED: SACUBITRIL/VALSARTAN 24-26 MG TABLET PO SCH (11:45)
[2016-08-30] MEDS ORDERED: SODIUM CHLORIDE 0.9% 250 ML IV ONE (11:49)
[2016-08-30] MEDS ORDERED: LEVALBUTEROL HCL 0.63 MG/3 ML NEB SOLUTION NEB SCH (12:00)
[2016-08-30] MEDS ORDERED: IPRATROPIUM BROMIDE 0.5 MG/2.5 ML NEB SOLUTION NEB SCH (12:00)
[2016-08-30 15:10] VITALS: BP 100/65
[2016-08-30] MEDS ORDERED: WARFARIN SODIUM 1 MG TABLET PO SCH (17:00)
== END 2016-08-30 19:05 | disposition short-term general hospital (02) | DRG 190 ==
LOC: EMS 23:56 → 5S 08-29 03:10
PROVIDERS: ADMIT Internal Medicine; ATTEND Internal Medicine
DX: J44.1 Chronic obstructive pulmonary disease with (acute) exacerbation (principal); I50.43 Acute on chronic combined systolic (congestive) and diastolic (congestive) heart failure; I27.2 Other secondary pulmonary hypertension; D64.9 Anemia, unspecified; I48.2 Chronic atrial fibrillation; E78.5 Hyperlipidemia, unspecified; I11.0 Hypertensive heart disease with heart failure; I34.0 Nonrheumatic mitral (valve) insufficiency; E78.00 Pure hypercholesterolemia, unspecified; E11.9 Type 2 diabetes mellitus without complications; J45.909 Unspecified asthma, uncomplicated; K21.9 Gastro-esophageal reflux disease without esophagitis; Z95.2 Presence of prosthetic heart valve; Z95.1 Presence of aortocoronary bypass graft; Z95.0 Presence of cardiac pacemaker; Z87.01 Personal history of pneumonia (recurrent); Z79.899 Other long term (current) drug therapy; Z98.890 Other specified postprocedural states; Z79.01 Long term (current) use of anticoagulants; Z79.84 Long term (current) use of oral hypoglycemic drugs; Z79.51 Long term (current) use of inhaled steroids
CPT/HCPCS: 83036; 83540; 83550; 83735; 84132; 84443; 87070; 87081; 87205; 93005; 94640; 94644; 96374; 96375; 99285; J0696; J1940; J2930; J3535; J7050

== ENCOUNTER 2017-06-19 17:40 | Emergency (ER) | payer MEDICARE, OTHER ==
[~2017-06-19] VITALS: Ht 149.9 cm; Wt 43.2 kg
[~2017-06-19 17:40] MED LIST changes: -ALBU8.5H IH; +ALBU8.5H8 IH; -BENZ-26 PO; +BENZ-51 PO
[2017-06-19] MEDS ORDERED: FERR-89 PO (20:25)
[2017-06-19] MEDS ORDERED: WARF1 PO (20:25)
[2017-06-19] MEDS ORDERED: DOCU250C91 PO (20:25)
[2017-06-19] MEDS ORDERED: DEXT15DR29 OU (20:25)
[2017-06-19] MEDS ORDERED: SITA25 PO (20:25)
[2017-06-19] MEDS ORDERED: KDUR20 PO (20:25)
[2017-06-19] MEDS ORDERED: METO25 PO (20:25)
[2017-06-19] MEDS ORDERED: TORS20 PO (20:25)
[2017-06-19] MEDS ORDERED: SPIR25 PO (20:25)
[2017-06-19] MEDS ORDERED: SENN-175 PO (20:25)
[2017-06-19] MEDS ORDERED: ACET-2247 PO (20:25)
[2017-06-19] MEDS ORDERED: SILD20TA PO (20:25)
[2017-06-19] MEDS ORDERED: ADV100 IH (20:25)
[2017-06-19] MEDS ORDERED: OMEP20 PO (20:25)
[2017-06-19] MEDS ORDERED: LIDOCAINE HCL 1% 10 ML VIAL INJ ONE (21:30)
[2017-06-19 22:13] VITALS: BP 113/67
== END 2017-06-19 22:15 | disposition home or self-care (01) ==
LOC: EMS 17:42
DX: L03.012 Cellulitis of left finger (principal); I11.0 Hypertensive heart disease with heart failure; I50.9 Heart failure, unspecified; I48.91 Unspecified atrial fibrillation; E78.00 Pure hypercholesterolemia, unspecified; E11.9 Type 2 diabetes mellitus without complications; K21.9 Gastro-esophageal reflux disease without esophagitis; J45.909 Unspecified asthma, uncomplicated
CPT/HCPCS: 10060; 99283; J3490

== ENCOUNTER 2019-05-13 21:22 | Emergency (ER) | payer MEDICARE, OTHER ==
[~2019-05-13] VITALS: Ht 152.4 cm; Wt 48.3 kg
[~2019-05-13 21:22] MED LIST changes: +ACET-2247 PO; +ADV100 IH; -ADV250 IH; -ALBU8HFA IH; -AMLO-511 PO; -ATOR20TA86 PO; +CHOL100018 PO; -CHOL2000 PO; -CLOT30CR23 TP; -CYCL05OE OD; +DEXT15DR29 OU; +DOCU-342 PO; -DOCU240C25 PO; -ERGO500044 PO; -FURO40 PO; -LATA2.5D2 OD; -METF500T4 PO; +METO25 PO; -METO50 PO; +OMEP20 PO; +SITA25 PO; -SPIR25 PO; -TIOT185 IH; +TORS20 PO; -TRAM50TA4 PO
[2019-05-13] MEDS ORDERED: PROPOFOL 1% 20 ML VIAL IVP ONE (21:25)
[2019-05-13] MEDS ORDERED: LIDOCAINE/PF 2% 5 ML VIAL IM ONE (21:25)
[2019-05-13] MEDS ORDERED: BUME1TAB34 PO (22:04)
[2019-05-13] MEDS ORDERED: PROZ10 PO (22:04)
[2019-05-13] MEDS ORDERED: SILD20TA PO (22:04)
[2019-05-13] MEDS ORDERED: FERR-89 PO (22:04)
[2019-05-13] MEDS ORDERED: ATOR20TA86 PO (22:04)
[2019-05-13] MEDS ORDERED: METO25XL PO (22:04)
[2019-05-13] MEDS ORDERED: GABA-529 PO (22:04)
[2019-05-13 22:05] LABS: HEMATOCRIT 23.1 % (36-46); HEMOGLOBIN 7.5 g/dL (12.0-16.0); MEAN CORPUSCULAR HEMOGLOBIN 23.9 pg (26.0-34.0); MEAN CORPUSCULAR HGB CONC 32.5 G/dL (31.0-37.0); MEAN CORPUSCULAR VOLUME 74 fL (80-100); PLATELET COUNT (AUTO) 197 K/uL (150-450); RED BLOOD CELL COUNT(AUTO) 3.14 MIL/uL (4.00-5.20); RED CELL DISTRIBUTION WIDTH 18.4 % (11.5-14.5)
[2019-05-13 22:13] LABS: CALCIUM, TOTAL 8.9 mg/dL (8.8-10.5); CREATININE 1.93 mg/dL (0.60-1.30)
[2019-05-13 22:16] LABS: INR 2.1 (0.9-1.1); PROTHROMBIN TIME 21.1 SEC (9.4-11.6)
[2019-05-13 22:18] LABS: ALBUMIN 2.6 g/dL (3.4-5.0); BILIRUBIN,TOTAL 0.8 mg/dL (0.1-1.0); TOTAL PROTEIN, SERUM 5.9 g/dL (6.4-8.2)
[2019-05-13] MEDS ORDERED: PANTOPRAZOLE SODIUM 40 MG/VIAL IVP ONE (22:30)
[2019-05-13] MEDS ORDERED: SODIUM CHLORIDE 0.9% 500 ML IV ONE (22:30)
[2019-05-13] MEDS ORDERED: PHYTONADIONE 10 MG in SODIUM CHLORIDE 0.9% 50 ML IV ONE (22:30)
[2019-05-13 22:36] LABS: BAND NEUTROPHILS % (MANUAL) 0 % (0-5)
[2019-05-13 22:37] LABS: BASOPHILS % (MANUAL) 1 % (0-2); LYMPHOCYTES % (MANUAL) 8 % (22-44); MONOCYTES % (MANUAL) 10 % (2-9); SEGMENTED NEUTROPHILS % 81 % (40-70)
[2019-05-13] MEDS ORDERED: SODIUM CHLORIDE 0.9% 250 ML IV ONE (23:09)
[2019-05-13] MEDS ORDERED: ONDANSETRON HCL 4 MG/2 ML VIAL IVP PRN (23:45)
[2019-05-13] MEDS ORDERED: ACETAMINOPHEN 325 MG TABLET PO PRN (23:45)
[2019-05-13] MEDS ORDERED: 0.9% SODIUM CHLORIDE 10 ML SYRINGE IVP PRN (23:45)
[2019-05-14] VITALS (23 sets, daily range): BP systolic 91–134; BP diastolic 51–89
[2019-05-14 03:10] LABS: BASOPHILS % (AUTO) 0.4 % (0.0-2.0); EOSINOPHILS % (AUTO) 0.1 % (1.0-6.0); HEMOGLOBIN 8.8 g/dL (12.0-16.0); LYMPHOCYTES # (AUTO) 0.3 K/uL (1.0-4.8); LYMPHOCYTES % (AUTO) 2.5 % (22.0-44.0); MEAN CORPUSCULAR HEMOGLOBIN 25.2 pg (26.0-34.0); MEAN CORPUSCULAR HGB CONC 32.8 G/dL (31.0-37.0); MEAN CORPUSCULAR VOLUME 77 fL (80-100); MONOCYTES % (AUTO) 9.2 % (2.0-9.0); NEUTROPHILS # (AUTO) 9.5 K/uL (1.8-7.7); PLATELET COUNT (AUTO) 178 K/uL (150-450); RED BLOOD CELL COUNT(AUTO) 3.51 MIL/uL (4.00-5.20); RED CELL DISTRIBUTION WIDTH 21.3 % (11.5-14.5)
[2019-05-14 03:11] LABS: NEUTROPHILS % (AUTO) 87.8 % (40.0-70.0)
[2019-05-14 03:12] LABS: INR 1.8 (0.9-1.1); PROTHROMBIN TIME 18.7 SEC (9.4-11.6)
[2019-05-14] MEDS ORDERED: ONDANSETRON HCL 4 MG/2 ML VIAL IVP PRN (06:15)
[2019-05-14] MEDS ORDERED: BISACODYL 10 MG RECTAL RECTAL SUPPOSITORY PR PRN (06:15)
[2019-05-14] MEDS ORDERED: MAGNESIUM HYDROXIDE SUSPENSION 30 ML UDCUP PO PRN (06:15)
[2019-05-14] MEDS ORDERED: MORPHINE SULFATE 2 MG/ML SYRINGE IVP PRN (06:15)
[2019-05-14] MEDS ORDERED: ZOLPIDEM TARTRATE 5 MG TABLET PO PRN (06:15)
[2019-05-14] MEDS ORDERED: ACETAMINOPHEN 325 MG TABLET PO PRN (06:15)
[2019-05-14] MEDS ORDERED: HYDROCODONE/ACETAMINOPHEN 5-325 MG TABLET PO PRN (06:15)
[2019-05-14] MEDS ORDERED: SODIUM CHLORIDE 0.9% 1,000 ML ONE (07:02)
[2019-05-14] MEDS ORDERED: DILTIAZEM HCL 5 MG/ML 5 ML VIAL IVP ONE (07:15)
[2019-05-14] MEDS ORDERED: PHYTONADIONE 10 MG/1 ML AMP PO ONE (07:30)
[2019-05-14 07:51] LABS: BASOPHILS % (AUTO) 0.3 % (0.0-2.0); EOSINOPHILS % (AUTO) 0.2 % (1.0-6.0); HEMATOCRIT 30.5 % (36-46); HEMOGLOBIN 9.6 g/dL (12.0-16.0); LYMPHOCYTES # (AUTO) 0.4 K/uL (1.0-4.8); LYMPHOCYTES % (AUTO) 5.3 % (22.0-44.0); MEAN CORPUSCULAR HEMOGLOBIN 25.8 pg (26.0-34.0); MEAN CORPUSCULAR HGB CONC 31.6 G/dL (31.0-37.0); MEAN CORPUSCULAR VOLUME 82 fL (80-100); MONOCYTES # (AUTO) 0.6 K/uL (0.1-1.0); MONOCYTES % (AUTO) 6.8 % (2.0-9.0); NEUTROPHILS # (AUTO) 7.3 K/uL (1.8-7.7); PLATELET COUNT (AUTO) 128 K/uL (150-450); RED BLOOD CELL COUNT(AUTO) 3.72 MIL/uL (4.00-5.20); RED CELL DISTRIBUTION WIDTH 20.3 % (11.5-14.5)
[2019-05-14 07:53] LABS: NEUTROPHILS % (AUTO) 87.4 % (40.0-70.0)
[2019-05-14] MEDS: PANTOPRAZOLE SODIUM 80 MG in SODIUM CHLORIDE 0.9% 100 ML IV SCH ×2 (07:54→21:48)
[2019-05-14 08:00] LABS: INR 1.5 (0.9-1.1); PROTHROMBIN TIME 15.1 SEC (9.4-11.6)
[2019-05-14 08:07] LABS: ALBUMIN 2.4 g/dL (3.4-5.0); CALCIUM, TOTAL 8.3 mg/dL (8.8-10.5); CREATININE 1.91 mg/dL (0.60-1.30); POTASSIUM 5.3 mmol/L (3.5-5.1); TOTAL PROTEIN, SERUM 5.5 g/dL (6.4-8.2)
[2019-05-14] MEDS ORDERED: PANTOPRAZOLE SODIUM 40 MG DR TABLET PO SCH (09:00)
[2019-05-14] MEDS: DOCUSATE SODIUM 100 MG CAPSULE PO SCH ×2 (09:00→21:00)
[2019-05-14 13:37] LABS: BASOPHILS % (AUTO) 0.5 % (0.0-2.0); EOSINOPHILS % (AUTO) 0 % (1.0-6.0); HEMATOCRIT 25.3 % (36-46); HEMOGLOBIN 8.4 g/dL (12.0-16.0); LYMPHOCYTES # (AUTO) 0.3 K/uL (1.0-4.8); LYMPHOCYTES % (AUTO) 3.4 % (22.0-44.0); MEAN CORPUSCULAR HEMOGLOBIN 26.2 pg (26.0-34.0); MEAN CORPUSCULAR HGB CONC 33.3 G/dL (31.0-37.0); MEAN CORPUSCULAR VOLUME 79 fL (80-100); MONOCYTES # (AUTO) 0.8 K/uL (0.1-1.0); MONOCYTES % (AUTO) 9.8 % (2.0-9.0); NEUTROPHILS # (AUTO) 7.3 K/uL (1.8-7.7); NEUTROPHILS % (AUTO) 86.3 % (40.0-70.0); PLATELET COUNT (AUTO) 148 K/uL (150-450); RED BLOOD CELL COUNT(AUTO) 3.21 MIL/uL (4.00-5.20); RED CELL DISTRIBUTION WIDTH 20.3 % (11.5-14.5)
[2019-05-14 13:53] LABS: INR 1.2 (0.9-1.1); PROTHROMBIN TIME 11.8 SEC (9.4-11.6)
[2019-05-14 19:02] LABS: GLUCOSE,POINT OF CARE 126 MG/DL (70-110)
[2019-05-14 20:18] LABS: BASOPHILS % (AUTO) 0.2 % (0.0-2.0); EOSINOPHILS % (AUTO) 0.5 % (1.0-6.0); HEMATOCRIT 23.4 % (36-46); HEMOGLOBIN 7.7 g/dL (12.0-16.0); LYMPHOCYTES # (AUTO) 0.2 K/uL (1.0-4.8); LYMPHOCYTES % (AUTO) 2.6 % (22.0-44.0); MEAN CORPUSCULAR HGB CONC 32.9 G/dL (31.0-37.0); MEAN CORPUSCULAR VOLUME 79 fL (80-100); MONOCYTES # (AUTO) 0.9 K/uL (0.1-1.0); MONOCYTES % (AUTO) 10.9 % (2.0-9.0); NEUTROPHILS # (AUTO) 7.2 K/uL (1.8-7.7); PLATELET COUNT (AUTO) 143 K/uL (150-450); RED BLOOD CELL COUNT(AUTO) 2.96 MIL/uL (4.00-5.20); RED CELL DISTRIBUTION WIDTH 20.8 % (11.5-14.5)
[2019-05-14 20:21] LABS: NEUTROPHILS % (AUTO) 85.8 % (40.0-70.0)
[2019-05-14] MEDS ORDERED: ATORVASTATIN CALCIUM 20 MG TABLET PO SCH (21:00)
[2019-05-14 21:39] LABS: HEMATOCRIT 22.4 % (36-46); HEMOGLOBIN 7.4 g/dL (12.0-16.0)
[2019-05-14] MEDS ORDERED: SODIUM CHLORIDE 0.9% 250 ML IV ONE (23:47)
[2019-05-15] VITALS (8 sets, daily range): BP systolic 111–141; BP diastolic 58–80
[2019-05-15 02:05] LABS: HEMOGLOBIN 9.1 g/dL (12.0-16.0); RED CELL DISTRIBUTION WIDTH 21.5 % (11.5-14.5)
[2019-05-15 02:18] LABS: HEMATOCRIT 27.4 % (36-46); MEAN CORPUSCULAR HEMOGLOBIN 27.2 pg (26.0-34.0); MEAN CORPUSCULAR HGB CONC 33.3 G/dL (31.0-37.0); MEAN CORPUSCULAR VOLUME 82 fL (80-100); RED BLOOD CELL COUNT(AUTO) 3.36 MIL/uL (4.00-5.20)
[2019-05-15 02:26] LABS: PLATELET COUNT (AUTO) 109 K/uL (150-450)
[2019-05-15 02:50] LABS: BAND NEUTROPHILS % (MANUAL) 0 % (0-5)
[2019-05-15 02:52] LABS: EOSINOPHILS % (MANUAL) 1 % (1-6); LYMPHOCYTES % (MANUAL) 7 % (22-44); MONOCYTES % (MANUAL) 6 % (2-9); SEGMENTED NEUTROPHILS % 86 % (40-70)
[2019-05-15] MEDS ORDERED: CHOLECALCIFEROL (VIT D3) 1,000 UNITS TABLET PO SCH (09:00)
== END 2019-05-15 02:40 | disposition short-term general hospital (02) ==
LOC: EMS 21:24 → UNDOADMIN 05-14 20:55 → ICU 05-14 20:55 → EMS 05-15 02:40
DX: K92.2 Gastrointestinal hemorrhage, unspecified (principal); I48.91 Unspecified atrial fibrillation; E11.9 Type 2 diabetes mellitus without complications; E78.00 Pure hypercholesterolemia, unspecified; I11.0 Hypertensive heart disease with heart failure; I50.9 Heart failure, unspecified; J44.9 Chronic obstructive pulmonary disease, unspecified; K21.9 Gastro-esophageal reflux disease without esophagitis; Z95.0 Presence of cardiac pacemaker; Z95.1 Presence of aortocoronary bypass graft; Z98.890 Other specified postprocedural states; Z79.899 Other long term (current) drug therapy; Z79.01 Long term (current) use of anticoagulants
CPT/HCPCS: 36415 ×2; 36430; 43255; 71045; 80053 ×2; 82271; 82962; 83690; 83880; 84484; 85014; 85018; 85025 ×2; 85610 ×2; 85730 ×2; 86850; 86900 ×2; 86901 ×2; 86920 ×2; 86927; 93005; 96365; 96366 ×2; 96375 ×2; 96376; 99291; C9113 ×3; J2405; J2704; J3430 ×2; J3490 ×2; J7030; J7040; J7050 ×5; P9016 ×2; P9017; G0378